=== PATIENT | female | born 1990 | race Caucasian/White ===

== ENCOUNTER 2024-07-08 07:32 | Inpatient (IN) | payer BC ==
[2024-07-08] MEDS ORDERED: Morphine 4 MG/ML VIAL ONE (08:27)
[2024-07-08] MEDS ORDERED: Ondansetron PF 4 MG/2 ML Vial IVP PRN ×2 (09:04→14:16)
[2024-07-08] MEDS ORDERED: Acetaminophen 325 MG TAB PO PRN (09:04)
[2024-07-08] MEDS ORDERED: Acetaminophen 650 MG Suppository PR PRN (09:04)
[2024-07-08] MEDS ORDERED: Morphine 2 MG/ML VIAL SLOW IVP PRN (09:07)
[2024-07-08 09:52] LABS: Bacteria/HPF None Seen HPF (None Seen); Bilirubin Negative (Negative); Blood, Urine Negative (Negative); CAUTI Indications for Culture Pelvic or flank pain; Clarity Clear (Clear); Glucose, Urine (Dipstick) Normal (Negative); Ketone, Urine Negative (Negative); Leukocyte Negative Leu/uL (Negative); Nitrite Negative (Negative); Protein, Urine (Dipstick) Negative (Neg-Trace); RBC/HPF None Seen HPF (0-3); Specific Gravity, Urine 1.016 (1.002-1.036); Squamous Epithelial 0-3 HPF (0-3); Urobilinogen Normal mg/dL (Less than 2); WBC/HPF 0-3 HPF (0-3); pH, Urine 6.5 (5.0-9.0)
[2024-07-08 09:54] LABS: Urine Culture Reflex No No
[2024-07-08] MEDS ORDERED: PROPOFOL 20 ML ONE (12:31)
[2024-07-08] MEDS ORDERED: fentaNYL PF 100 MCG/2 ML SYRINGE ONE (12:31)
[2024-07-08] MEDS ORDERED: Midazolam HCl 2 mg/2 ml Vial ONE (12:31)
[2024-07-08] MEDS ORDERED: Iopamidol 30 ML ONE (12:48)
[2024-07-08] MEDS ORDERED: Lidocaine 1% PF 5 ML VIAL ONE (13:20)
[2024-07-08] MEDS ORDERED: LevoFLOXacin D5W 500 mg (100 mL) BAG ONE (13:27)
[2024-07-08] MEDS ORDERED: Rocuronium Bromide 10 MG/ML (10ML VIAL) ONE (13:48)
[2024-07-08] MEDS ORDERED: Ondansetron PF 4 MG/2 ML Vial ONE (13:48)
[2024-07-08] MEDS ORDERED: Ketorolac Tromethamine 30 MG (1 mL) VIAL ONE (13:48)
[2024-07-08] MEDS ORDERED: Dexamethasone 20 MG/5 ML VIAL ONE (13:48)
[2024-07-08] MEDS ORDERED: SUGAMMADEX SODIUM 200 MG/2 ML VIAL ONE (13:49)
[2024-07-08] MEDS ORDERED: diphenhydrAMINE 25 MG CAP PO PRN (14:15)
[2024-07-08] MEDS ORDERED: Oxybutynin 5 MG TAB PO PRN (14:15)
[2024-07-08 15:09] VITALS: BMI 31.8
[2024-07-08] MEDS: Phenazopyridine HCl 100 MG TAB PO SCH (15:49)
[2024-07-08] MEDS: Sodium Chloride 0.9% 1,000 ML IV SCH (15:49)
[2024-07-08] MEDS: Docusate 100 MG CAP PO SCH (21:00)
[2024-07-08] MEDS: cefTRIAXone\\ROCEPHIN 1 GM in Sodium Chloride 0.9% 100 ML IVPB SCH (21:00)
[2024-07-09 05:37] LABS: #Basophils Less than 0.03 10x3/uL (0.0-0.2); #Eosinophils Less than 0.03 10x3/uL (0.0-0.7); %Lymphocytes 13.1 % (21.0-51.0); %Monocytes 2.5 % (0.0-10.0); Hematocrit 36.5 % (36.0-47.0); Hemoglobin 11.8 g/dL (12.0-16.0); Mean Corpuscular HGB CONC 32.3 g/dL (32.0-36.0); Mean Corpuscular Hemoglobin 27.8 pg (27.0-31.0); Mean Corpuscular Volume 85.9 fL (78.0-98.0); Platelet Count 235 10x3/uL (130-400); RBC Distribution Width 12.9 % (11.5-14.5); Red Blood Cell (RBC) Count 4.25 mill/uL (4.20-5.40)
[2024-07-09] MEDS: Ketorolac Tromethamine 30 MG (1 mL) VIAL IVP PRN (05:37)
[2024-07-09 05:57] LABS: Anion Gap 11 mmol/L (10-20); BUN (Urea Nitrogen) 9 mg/dL (7.0-18.7); Calc. Creatinine Clearance 160 mL/min (70-130); Calcium 8.7 mg/dL (7.8-10.44); Carbon Dioxide 24 mmol/L (22-29); Chloride 109 mmol/L (98-107); Estimated GFR 119; Glucose 141 mg/dL (70-105); Potassium 4.1 mmol/L (3.5-5.1); Sodium 140 mmol/L (136-145)
[2024-07-09] MEDS: Polyethylene Glycol 3350 17 GM Packet PO SCH (08:46)
[2024-07-09 12:26] VITALS: BP 135/82; TEMP 98.7
[2024-07-15 09:09] LABS: CA Oxalate Dihydrate 20 % (.); CA Oxalate Monohydrate 80 % (.); Color Brown (.); Stone Weight 16 mg (.)
== END 2024-07-09 13:57 | disposition home or self-care (01) | DRG 661 ==
LOC: ERS 07:32 → T4-A 08:46
PROVIDERS: ADMIT Student in an Organized Health Care Education/Training Program; ATTEND Internal Medicine
PROC: 0T778DZ Dilation of Left Ureter with Intraluminal Device, Via Natural or Artificial Opening Endoscopic (ICD-10-PCS; principal; 2024-07-08)
PROC: 0TC78ZZ Extirpation of Matter from Left Ureter, Via Natural or Artificial Opening Endoscopic (ICD-10-PCS; 2024-07-08)
DX: N13.6 Pyonephrosis (principal)
CPT/HCPCS: 36415; 74420; 80048; 81001; 82365; 85025; 87040; 87086; 88300; 96374; C2617; J0696; J1100; J1885; J1956; J2250; J2270; J2405; J2704; J7030; Q9967